=== PATIENT | male | born 1975 | race Caucasian/White ===

== ENCOUNTER 2022-01-21 15:41 | Emergency (ER) | payer BC ==
--- OUTSIDE RECORDS SUMMARY | 2022-01-21 15:43 | XMS REPORT | Continuity of Care Document ---
:1975 Author Organization [facility] t Address [address] [place] [address] Care Team Providers Name Role Phone Gosia Reed Primary Care Physician DEVAUGHN HANEY Attending Clinician Unavailable Devaughn Frank Attending Clinician Payers Payer Name Policy Type Policy Number Effective Date Expiration Date Stefania moya [facility] [id number] 2017 00:00:00 SELECT Problems Condition Condition Condition Status Onset Resolution Last Treating Co mments Source Name Details Category Date Date Treatment Clinician Date No known No known Disease Unive rs active active ity of problems problems [facility] Allergies, Adverse Reactions, Alerts Allergy Allergy Status Severity Reaction(s) Onset Inactive Treating Comm ents Source Name Type Date Date Clinician NO KNOWN Drug Active Univers ALLERGIE Class ity of S [facility] Social History Social Habit Start Date Stop Date Quantity Comments Source Exposure to 2022-01-08 2022-01-18 Not sure [facility] SARS-CoV-2 (event) 00:00:00 20:18:00 Medica l Branch Sex Assigned At [birth year] [facility] [place] 00:00:00 00:00:00 Medical Branch Smoking Status Start Date Stop Date Source Tobacco smoking consumption [facility] Medical unknown Branch Medications Ordered Filled Start Stop Current Ordering Indication Dosage Frequency Signature Comments Components Source Medication Medication Date Date Medication? Clinician (SIG) Name Name doxycycline 2021- Yes [id number] 100mg Take 1 Univers 100 mg EC 01-18 [id number] tablet by it y of tablet 00:00: 04:59 mouth in [place] 00 :00 the Medical morning Branch and 1 tablet in the evening. Do all this for 7 days. Vital Signs Vital Name Observation Time Observation Value Comments Source Systolic blood 2022-01-19 01:21:00 128 mm[Hg] Univer sity of pressure [facility] Diastolic blood 2022-01-19 01:21:00 87 mm[Hg] Unive rsity of pressure [facility] Heart rate 2022-01-19 01:21:00 70 /min [facility] Body temperature 2022-01-19 01:21:00 37.22 Lara [facility] Respiratory rate 2022-01-19 01:21:00 18 /min [facility] Body height 2022-01-19 01:21:00 165.1 cm [facility] Body weight 2022-01-19 01:21:00 79.379 kg [facility] BMI 2022-01-19 01:21:00 29.12 kg/m2 [facility] Oxygen saturation in 2022-01-19 01:21:00 96 /min [facility] Arterial blood by [facility] Pulse oximetry Branch Procedures Procedure Date / Time Performed Performing Clinician [facility] e NOTICE OF PRIVACY 2022-01-19 01:29:36 Doctor Unassigned, No [facility] PRACTICES Name Medical Branch CONSENT/REFUSAL FOR 2022-01-19 01:11:41 Doctor Unassigned, No Un [facility] DIAGNOSIS AND Name Medical Branch TREATMENT Encounters Start End Encounter Admission Attending Care Care Encounter Source Date/Time Date/Time Type Type Clinicians Facility Department ID 2022-01-18 2022-01-18 Emergency X RIDD[place], [facility] ERT [id number] Univers 20:36:00 20:39:00 DEVAUGHN it y of [facility] 2022-01-18 2022-01-18 Emergency [place], [facility] [id number] Univers 20:36:00 20:39:00 Devaughn DUNLAP [id number] ity aubrey RANGELY [id number] [facility] [id number] Medi kelly 084 Branch Results This patient has no known results.
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
[2022-01-21] MEDS ORDERED: predniSONE 20 MG TAB ONE (16:35)
[2022-01-21] MEDS ORDERED: FAMOTIDINE 20 MG TAB ONE (16:35)
[2022-01-21 17:51] VITALS: TEMP 98.4
[2022-01-21 17:54] VITALS: BP 131/92; O2SAT 100
== END 2022-01-21 17:00 | disposition home or self-care (01) ==
LOC: ER 15:41
DX: L30.9 Dermatitis, unspecified (principal)
CPT/HCPCS: 99283; J7512